=== PATIENT | female | born 1995 | race Caucasian/White ===

== ENCOUNTER 2020-08-19 10:58 | Emergency (ER) | payer OTHER ==
[~2020-08-19] VITALS: Ht 154.9 cm; Wt 74.5 kg
[2020-08-19] MEDS ORDERED: ADDE20CA3 PO (11:08)
[2020-08-19] MEDS ORDERED: CLON0.5T17 PO (11:08)
[2020-08-19] MEDS ORDERED: LAMI1TAB8 PO (11:08)
[2020-08-19] MEDS ORDERED: BACL1TAB9 PO (11:08)
[2020-08-19] MEDS ORDERED: BOOSTRIX/ADACEL VACCINE (DIPHTH/PERTUSS/ACELL/TETANUS) 0.5ML SYR IM ONE (11:45)
[2020-08-19] MEDS ORDERED: ACETAMINOPHEN 325 MG TAB PO ONE (11:45)
[2020-08-19 12:12] LABS: BASO % 0.4 % (0.0-1.0); EOS # 0.1 10^3/uL (0.0-0.5); EOS % 1.4 % (0.0-3.0); HEMATOCRIT 40.6 % (36.0-47.0); HEMOGLOBIN 13.5 g/dl (12.0-15.5); LYMPH # 2.2 10^3/uL (1.5-5.0); LYMPH % 30.6 % (24.0-44.0); MEAN CORPUSCULAR HEMOGLOBIN 32.5 pg (27.0-33.0); MEAN CORPUSCULAR HGB CONC 33.3 g/dl (32.0-36.5); MEAN CORPUSCULAR VOLUME 97.6 fl (80.0-96.0); MONO # 0.6 10^3/uL (0.0-0.8); MONO % 7.9 % (2.0-8.0); NEUTROPHILS # 4.2 10^3/uL (1.5-8.5); NEUTROPHILS % 59.1 % (36.0-66.0); PLATELET COUNT, AUTOMATED 242 10^3/uL (150-450); RED BLOOD COUNT 4.16 10^6/uL (4.00-5.40); WHITE BLOOD COUNT 7.2 10^3/uL (4.0-10.0)
[2020-08-19 12:45] LABS: ALBUMIN 4.2 GM/DL (3.2-5.2); ALT/SGPT 31 U/L (12-78); BILIRUBIN,DIRECT 0.1 MG/DL (0.0-0.2); BILIRUBIN,TOTAL 0.3 MG/DL (0.2-1.0); LIPASE 274 U/L (73-393); TOTAL PROTEIN 7.2 GM/DL (6.4-8.2)
[2020-08-19] MEDS ORDERED: ISOVUE-370 76% 100ML VIAL As Ordered ONE (12:48)
[2020-08-19 13:07] LABS: CK-MB VALUE MASS 1.8 NG/ML (<3.6); CPK CREATINE PHOSPHOKINASE 236 U/L (26-192); MB/CK RELATIVE INDEX 0.76 (< OR =4); TROPONIN I < 0.02 NG/ML (< 0.10)
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
[2020-08-19 14:13] VITALS: BP 119/74
== END 2020-08-19 14:40 | disposition home or self-care (01) ==
LOC: M ED 10:58
DX: S16.1XXA Strain of muscle, fascia and tendon at neck level, initial encounter (principal); S20.219A Contusion of unspecified front wall of thorax, initial encounter; S40.012A Contusion of left shoulder, initial encounter; S60.511A Abrasion of right hand, initial encounter; V49.40XA Driver injured in collision with unspecified motor vehicles in traffic accident, initial encounter; Y92.9 Unspecified place or not applicable; Y93.9 Activity, unspecified; Y99.9 Unspecified external cause status; M54.2 Cervicalgia; Z88.6 Allergy status to analgesic agent
CPT/HCPCS: 36415; 70450; 71260; 72125; 73030; 74177; 80047; 80076; 82550; 82553; 83690; 84484; 84702; 85025; 90471; 90715; 99284; Q9967

== ENCOUNTER → 2020-09-15 | Outpatient (REF) | payer OTHER ==
[~2020-09-15] MED LIST: ADDE20CA3 PO; BACL1TAB9 PO; CLON0.5T17 PO; LAMI1TAB8 PO
[2020-09-20 17:07] LABS: AMPHETAMINE, URINE GC/MS >5000 ng/mL (Cutoff=500); CREATININE, URINE 90.1 mg/dL (20.0-300.0); METHAMPHETAMINE, URINE Negative (Cutoff=500)
== END ==
LOC: M LAB REF 16:45
PROVIDERS: ATTEND Pediatrics
DX: F13.20 Sedative, hypnotic or anxiolytic dependence, uncomplicated (principal)

== ENCOUNTER → 2020-09-29 | Outpatient (REF) | payer OTHER ==
[2020-09-29 18:10] LABS: ALBUMIN 4.4 GM/DL (3.2-5.2); BLOOD UREA NITROGEN 9 MG/DL (7-18); CALCIUM LEVEL 9.6 MG/DL (8.5-10.1); CARBON DIOXIDE LEVEL 29 MEQ/L (21-32); CHLORIDE LEVEL 110 MEQ/L (98-107); CREATININE FOR GFR 0.76 MG/DL (0.55-1.30); GLOMERULAR FILTRATION RATE > 60.0 (>60); GLUCOSE, FASTING 84 MG/DL (70-100); LITHIUM LEVEL 0.72 MEQ/L (0.60-1.20); PHOSPHORUS LEVEL 3.9 MG/DL (2.5-4.9); POTASSIUM SERUM 4.3 MEQ/L (3.5-5.1); SODIUM LEVEL 141 MEQ/L (136-145)
== END ==
LOC: M LAB REF 16:21
PROVIDERS: ATTEND Pediatrics
DX: F13.20 Sedative, hypnotic or anxiolytic dependence, uncomplicated (principal); F31.81 Bipolar II disorder

== ENCOUNTER → 2021-04-27 | Outpatient (REF) | payer OTHER ==
[2021-04-27 18:09] LABS: HEMATOCRIT 38.7 % (36.0-47.0); HEMOGLOBIN 13.2 g/dl (12.0-15.5); MEAN CORPUSCULAR HEMOGLOBIN 32.6 pg (27.0-33.0); MEAN CORPUSCULAR HGB CONC 34.1 g/dl (32.0-36.5); MEAN CORPUSCULAR VOLUME 95.6 fl (80.0-96.0); PLATELET COUNT, AUTOMATED 269 10^3/uL (150-450); RED BLOOD COUNT 4.05 10^6/uL (4.00-5.40); WHITE BLOOD COUNT 7.9 10^3/uL (4.0-10.0)
[2021-04-27 18:56] LABS: HCG, SERUM QUANTITATIVE 8907 MIU/ML
[2021-04-27 19:05] LABS: HEPATITIS B SURFACE ANTIGEN NEGATIVE (NEGATIVE)
[2021-04-27 19:33] LABS: HEPATITIS C VIRUS ABY INDEX < 0.0 INDEX (<0.8)
[2021-04-27 19:34] LABS: HIV 1&2 SCREEN CENTAUR NEGATIVE (NEGATIVE)
== END ==
LOC: M LAB REF 16:55
PROVIDERS: ATTEND Advanced Practice Midwife
DX: Z32.01 Encounter for pregnancy test, result positive (principal); O36.80X0 Pregnancy with inconclusive fetal viability, not applicable or unspecified

== ENCOUNTER → 2021-09-19 | Outpatient (CLI) | payer OTHER ==
[2021-09-19 13:57] LABS: BASO # 0.1 10^3/uL (0.0-0.2); BASO % 0.5 % (0.0-1.0); EOS # 0.1 10^3/uL (0.0-0.5); EOS % 0.7 % (0.0-3.0); HEMATOCRIT 32.4 % (36.0-47.0); HEMOGLOBIN 10.9 g/dl (12.0-15.5); LYMPH # 1.9 10^3/uL (1.5-5.0); MEAN CORPUSCULAR HEMOGLOBIN 32.1 pg (27.0-33.0); MEAN CORPUSCULAR HGB CONC 33.6 g/dl (32.0-36.5); MEAN CORPUSCULAR VOLUME 95.3 fl (80.0-96.0); MONO # 0.5 10^3/uL (0.0-0.8); MONO % 4.2 % (2.0-8.0); NEUTROPHILS # 9.8 10^3/uL (1.5-8.5); NEUTROPHILS % 77.7 % (36.0-66.0); PLATELET COUNT, AUTOMATED 204 10^3/uL (150-450); WHITE BLOOD COUNT 12.6 10^3/uL (4.0-10.0)
== END ==
LOC: M LAB 11:50
PROVIDERS: ATTEND Advanced Practice Midwife
DX: Z34.02 Encounter for supervision of normal first pregnancy, second trimester (principal)

== ENCOUNTER → 2021-09-22 | Outpatient (CLI) | payer OTHER | LOC: M LAB 08:23 | PROVIDERS: ATTEND Advanced Practice Midwife | DX: O99.810 Abnormal glucose complicating pregnancy (principal) ==

== ENCOUNTER → 2021-11-24 | Outpatient (REF) | payer OTHER ==
[~2021-11-24] MED LIST changes: +ADDE30CA3 PO; +BACL10TA2 PO; +PRENTAB9 PO; +TRAZ1TAB10 PO
== END ==
LOC: M LAB REF 12:11
PROVIDERS: ATTEND Obstetrics & Gynecology
DX: Z34.03 Encounter for supervision of normal first pregnancy, third trimester (principal)

== ENCOUNTER 2021-12-17 08:37 | Outpatient (CLI) | payer OTHER ==
[~2021-12-17] VITALS: Ht 154.9 cm; Wt 91.7 kg
[2021-12-17] MEDS ORDERED: THERTAB52 PO (08:59)
[2021-12-17] MEDS ORDERED: IRON325T2 PO (08:59)
[2021-12-17 09:04] VITALS: BP 125/72
[2021-12-17] MEDS ORDERED: HOME MED LIST COMPLETE! XX SCH (09:10)
[2021-12-17 09:33] VITALS: BP 132/73
== END 2021-12-17 09:46 | disposition home or self-care (01) ==
LOC: M LDO 08:37
PROVIDERS: ATTEND Specialist
DX: O36.8330 Maternal care for abnormalities of the fetal heart rate or rhythm, third trimester, not applicable or unspecified (principal); Z71.1 Person with feared health complaint in whom no diagnosis is made; Z3A.38 38 weeks gestation of pregnancy
CPT/HCPCS: 59025; G0463

== ENCOUNTER 2021-12-28 07:28 | Inpatient (IN) | payer OTHER ==
[~2021-12-28] VITALS: Ht 154.9 cm; Wt 95.3 kg
[2021-12-28] VITALS (13 sets, daily range): BP systolic 107–147; BP diastolic 66–85
[~2021-12-28 07:28] MED LIST changes: +IRON325T2 PO; +THERTAB52 PO
[2021-12-28] MEDS ORDERED: CETI10CA2 PO (07:55)
[2021-12-28] MEDS ORDERED: OMEP40CA4 PO (07:56)
[2021-12-28] MEDS ORDERED: HOME MED LIST COMPLETE! XX SCH (08:00)
[2021-12-28] MEDS ORDERED: LIDOCAINE 1% MDV 20ML VIAL INFIL PRN (08:50)
[2021-12-28] MEDS ORDERED: CARBOPROST TROMETHAMINE 250 MCG/ML AMP IM PRN (08:50)
[2021-12-28] MEDS ORDERED: OXYTOCIN INJ 10 UNITS/ML VIAL (J2590) IM PRN (08:50)
[2021-12-28] MEDS ORDERED: TRANEXAMIC ACID INJection 1,000 MG in NS 100 ML IV PRN (08:50)
[2021-12-28] MEDS ORDERED: PENICILLIN G POTASSIUM IV 5 MU in D5W MINI-BAG PLUS 100 ML IV STA (08:50)
[2021-12-28] MEDS ORDERED: OXYTOCIN DRIP 30 UNITS in IV 1 EA IV PRN (08:50)
[2021-12-28 09:08] LABS: HEMOGLOBIN 9.8 g/dl (12.0-15.5); MEAN CORPUSCULAR HEMOGLOBIN 32.1 pg (27.0-33.0); MEAN CORPUSCULAR HGB CONC 33.8 g/dl (32.0-36.5); MEAN CORPUSCULAR VOLUME 95.1 fl (80.0-96.0); PLATELET COUNT, AUTOMATED 145 10^3/uL (150-450); RED BLOOD COUNT 3.05 10^6/uL (4.00-5.40); WHITE BLOOD COUNT 9.6 10^3/uL (4.0-10.0)
[2021-12-28 09:31] LABS: ALT/SGPT 18 U/L (12-78); BILIRUBIN,TOTAL 0.3 MG/DL (0.2-1.0); CREATININE FOR GFR 0.54 MG/DL (0.55-1.30); GLOMERULAR FILTRATION RATE > 60.0 (>60); LDH LACTATE DEHYDROGENASE 180 U/L (84-246); URIC ACID 3.7 MG/DL (2.6-6.0)
[2021-12-28] MEDS: miSOPROStol 50MCG 1/2 TABLET PO SCH ×3 (09:34→17:53)
[2021-12-28 09:38] LABS: CREATININE,RANDOM URINE 25.3 MG/DL; TOTAL PROTEIN,RANDOM URINE 9.9 MG/DL (0.0-12.0)
[2021-12-28] MEDS ORDERED: PENICILLIN G POTASSIUM IV 2.5 MU in IV 1 EA IV SCH (12:50)
[2021-12-29] VITALS (35 sets, daily range): BP systolic 113–162; BP diastolic 58–91
[2021-12-29] MEDS ORDERED: BUTORPHANOL 2 MG/ML INJ (J0595) IV ONE
[2021-12-29] MEDS ORDERED: PROMETHAZINE 25MG/ML 1ML VIAL IV ONE
[2021-12-29] MEDS: miSOPROStol 50MCG 1/2 TABLET PO SCH
[2021-12-29] MEDS ORDERED: OXYTOCIN DRIP 30 UNITS in IV 1 EA IV SCH ×2 (04:05→13:25)
[2021-12-29] MEDS: LR 1,000 ML IV SCH ×5 (04:20→20:55)
[2021-12-29 04:51] LABS: HEMATOCRIT 30.2 % (36.0-47.0); MEAN CORPUSCULAR HEMOGLOBIN 31.1 pg (27.0-33.0); MEAN CORPUSCULAR HGB CONC 33.1 g/dl (32.0-36.5); MEAN CORPUSCULAR VOLUME 93.8 fl (80.0-96.0); PLATELET COUNT, AUTOMATED 141 10^3/uL (150-450); RED BLOOD COUNT 3.22 10^6/uL (4.00-5.40); WHITE BLOOD COUNT 12.5 10^3/uL (4.0-10.0)
[2021-12-29] MEDS ORDERED: PENICILLIN G POTASSIUM IV 5 MU in D5W MINI-BAG PLUS 100 ML IV STA (05:26)
[2021-12-29] MEDS ORDERED: FENTANYL 2MCG/ML ROPIVACAINE 0.2% IN 0.9% NACL 100ML IVBAG As Ordered ONE (09:00)
[2021-12-29] MEDS: AMPHETAMINE/DEXTROAMPHETAMINE 5 MG *ER* CAPSULE (ADDERALL XR) PO SCH (09:00)
[2021-12-29] MEDS: PRENATAL VITAMINS CHEWABLE TABLET PO SCH (09:00)
[2021-12-29] MEDS ORDERED: PENICILLIN G POTASSIUM IV 2.5 MU in IV 1 EA IV SCH (09:00)
[2021-12-29] MEDS: DOCUSATE SODIUM 100MG CAPSULE PO SCH ×2 (09:00→20:43)
[2021-12-29] MEDS ORDERED: EPIDURAL/PCA KEYS XX PRN (09:35)
[2021-12-29] MEDS ORDERED: NALOXONE INJ 0.4MG/1ML VIAL (J2310 PER 1MG) IV PRN ×3 (09:35→14:40)
[2021-12-29] MEDS ORDERED: LR 500 ML IV PRN (09:35)
[2021-12-29] MEDS ORDERED: diphenhydrAMINE 50MG/ML VIAL (J1200) IV PRN (09:35)
[2021-12-29] MEDS ORDERED: FENTANYL/ROPIVACAINE/NACL BAG 100 ML EPIDURAL SCH ×2 (09:35)
[2021-12-29] MEDS ORDERED: ONDANSETRON 4MG 2ML VIAL IV PRN ×3 (09:35→14:40)
[2021-12-29] MEDS ORDERED: ePHEDrine SULFATE 25 MG/5 ML(5MG/ML) SYRINGE IVP PRN (09:35)
[2021-12-29] MEDS ORDERED: BICITRA 30ML SOLN UDC PO ONE (12:55)
[2021-12-29] MEDS ORDERED: AZITHROMYCIN INJ 500 MG, VIAL MATE ADAPTER 1 EACH in NS 250 ML IV ONE (12:55)
[2021-12-29] MEDS ORDERED: ceFAZolin SOD 2 GM in IV 1 EA IV ONE (12:55)
[2021-12-29] MEDS ORDERED: LIDOCAINE 2% W/EPINEPHRINE 20ML VIAL **PRES FREE As Ordered ONE (13:07)
[2021-12-29] MEDS ORDERED: OXYTOCIN INJ 10 UNITS/ML VIAL (J2590) As Ordered ONE ×2 (13:08→14:15)
[2021-12-29] MEDS ORDERED: LR 1,000 ML IV SCH (13:25)
[2021-12-29] MEDS ORDERED: SIMETHICONE 80MG CHEW TAB PO PRN (13:25)
[2021-12-29] MEDS ORDERED: KETOROLAC 30 MG/ML 1ML VIAL IV SCH (13:25)
[2021-12-29] MEDS ORDERED: RHOGAM 300 MCG (1500 IU) INJ (J2790) IM SCH (13:25)
[2021-12-29] MEDS ORDERED: PERCOCET 5MG/325MG TAB PO PRN (13:25)
[2021-12-29] MEDS ORDERED: MOM 30ML SUSPENSION UDC PO PRN (13:25)
[2021-12-29] MEDS ORDERED: METOCLOPRAMIDE INJ 10MG/2ML VIAL (J2765 PER 1) As Ordered ONE (13:26)
[2021-12-29] MEDS ORDERED: dexameTHASONE 4 MG/ML 1ML VIAL (J1100 PER 1MG) As Ordered ONE (13:37)
[2021-12-29] MEDS ORDERED: ONDANSETRON 4MG 2ML VIAL As Ordered ONE (13:37)
[2021-12-29] MEDS ORDERED: PHENYLephrine 500MCG 5ML (100MCG/ML) SYRINGE As Ordered ONE (13:41)
[2021-12-29] MEDS ORDERED: MORPHINE PRES-FREE INJ 10 MG/10 ML VIAL As Ordered ONE (13:51)
[2021-12-29] MEDS: SLF 3 ML SYR IV SCH ×2 (14:00→22:00)
[2021-12-29 14:03] LABS: CORD GAS ABE A -5.2; CORD GAS HCO3 A 24.6 MEQ/L; CORD GAS O2 SAT A 17.8 %; CORD GAS PCO2 A 67.7 mmHg; CORD GAS PH A 7.178 UNITS; CORD GAS PO2 A 13.6 mmHg; CORD GAS SBC A 18.4 MEQ/L; CORD GAS TCO2 A 26.7 MEQ/L
[2021-12-29 14:07] LABS: CORD GAS HCO3 V 21.9 MEQ/L; CORD GAS O2 SAT V 51.1 %; CORD GAS PCO2 V 52.3 mmHg; CORD GAS PH V 7.24 UNITS; CORD GAS PO2 V 26.1 mmHg; CORD GAS SBC V 18.6 MEQ/L; CORD GAS TCO2 V 23.5 MEQ/L
[2021-12-29] MEDS ORDERED: KETOROLAC 60MG 2ML VIAL As Ordered ONE (14:11)
[2021-12-29] MEDS ORDERED: OXYTOCIN 30 UNITS IN 0.9% NaCl 500ML IV BAG (J2590) As Ordered ONE (14:39)
[2021-12-29] MEDS ORDERED: oxyCODONE 5MG TAB PO PRN (14:40)
[2021-12-29] MEDS ORDERED: METOCLOPRAMIDE INJ 10MG/2ML VIAL (J2765 PER 1) IV PRN (14:40)
[2021-12-29] MEDS ORDERED: **NOTE PATIENT COMMENT** MISC XX SCH (14:40)
[2021-12-29] MEDS ORDERED: HYDROMORPHONE HCL 0.5 MG/ 0.5 ML SYRINGE (J1170 PER 1) IV PRN (14:40)
[2021-12-29] MEDS ORDERED: fentaNYL 100 MCG/2 ML INJECTION IV PRN (14:40)
[2021-12-29] MEDS ORDERED: MEPERIDINE INJ 25 MG/ML VIAL (J2175) IV PRN (14:40)
[2021-12-29] MEDS: PERCOCET 5MG/325MG TAB PO PRN (22:27)
[2021-12-30 03:15] VITALS: BP 122/71
[2021-12-30] MEDS: LR 1,000 ML IV SCH ×3 (04:05→12:05)
[2021-12-30] MEDS: PERCOCET 5MG/325MG TAB PO PRN ×4 (05:16→23:45)
[2021-12-30] MEDS: SLF 3 ML SYR IV SCH (05:18)
[2021-12-30 06:00] VITALS: BP 111/73
[2021-12-30 07:45] LABS: HEMATOCRIT 26.7 % (36.0-47.0); HEMOGLOBIN 8.9 g/dl (12.0-15.5); MEAN CORPUSCULAR HEMOGLOBIN 31.7 pg (27.0-33.0); MEAN CORPUSCULAR HGB CONC 33.3 g/dl (32.0-36.5); PLATELET COUNT, AUTOMATED 165 10^3/uL (150-450); RED BLOOD COUNT 2.81 10^6/uL (4.00-5.40); WHITE BLOOD COUNT 16.5 10^3/uL (4.0-10.0)
[2021-12-30] MEDS: AMPHETAMINE/DEXTROAMPHETAMINE 5 MG *ER* CAPSULE (ADDERALL XR) PO SCH (09:00)
[2021-12-30] MEDS: DOCUSATE SODIUM 100MG CAPSULE PO SCH ×2 (09:42→20:32)
[2021-12-30] MEDS: PRENATAL VITAMINS CHEWABLE TABLET PO SCH (09:43)
[2021-12-30 10:00] VITALS: BP 116/70
[2021-12-30] MEDS ORDERED: COLA100C5 PO (13:09)
[2021-12-30] MEDS ORDERED: PERCOCET PO (13:09)
[2021-12-30] MEDS ORDERED: IBUPROFEN 800 MG TAB PO SCH (15:25)
[2021-12-30 17:59] VITALS: BP 134/84
[2021-12-30 22:00] VITALS: BP 125/69
[2021-12-30] MEDS ORDERED: ACETAMINOPHEN 500 MG TAB PO ONE (22:20)
[2021-12-31 02:00] VITALS: BP 117/60
[2021-12-31 05:44] VITALS: BP 130/79
[2021-12-31] MEDS: PERCOCET 5MG/325MG TAB PO PRN ×2 (05:51→12:26)
[2021-12-31] MEDS: AMPHETAMINE/DEXTROAMPHETAMINE 5 MG *ER* CAPSULE (ADDERALL XR) PO SCH (09:00)
[2021-12-31] MEDS ORDERED: MEASLES,MUMPS,RUBELLA VACCINE INJ (MMR-II) (90707) SC.IMMUN ONE (09:00)
[2021-12-31] MEDS: DOCUSATE SODIUM 100MG CAPSULE PO SCH (09:49)
[2021-12-31] MEDS: PRENATAL VITAMINS CHEWABLE TABLET PO SCH (09:49)
[2021-12-31 10:00] VITALS: BP 131/79
[2021-12-31] MEDS ORDERED: NAPR-849 PO (11:29)
[2021-12-31] MEDS ORDERED: NAPROXEN 250 MG TAB PO ONE (12:00)
[2021-12-31 14:00] VITALS: BP 128/70
== END 2021-12-31 16:04 | disposition home or self-care (01) | DRG 773 ==
LOC: M LDI 07:28 → M OBS 12-29 16:32
PROVIDERS: ADMIT Advanced Practice Midwife; ATTEND Obstetrics & Gynecology
PROC: 3E0P7GC Introduction of Other Therapeutic Substance into Female Reproductive, Via Natural or Artificial Opening (ICD-10-PCS; 2021-12-28)
PROC: 10D00Z1 Extraction of Products of Conception, Low, Open Approach (ICD-10-PCS; principal; 2021-12-29 13:14)
DX: O13.4 Gestational [pregnancy-induced] hypertension without significant proteinuria, complicating childbirth (principal); Z3A.40 40 weeks gestation of pregnancy; O99.824 Streptococcus B carrier state complicating childbirth; O99.344 Other mental disorders complicating childbirth; F90.9 Attention-deficit hyperactivity disorder, unspecified type; O76 Abnormality in fetal heart rate and rhythm complicating labor and delivery; Z37.0 Single live birth

== ENCOUNTER 2023-04-24 18:08 | Emergency (ER) | payer OTHER ==
[~2023-04-24] VITALS: Ht 154.9 cm; Wt 70.4 kg
[~2023-04-24 18:08] MED LIST changes: +CETI10CA2 PO; +COLA100C5 PO; +NAPR-849 PO; +OMEP40CA4 PO; +PERCOCET PO
[2023-04-24 18:09] VITALS: BP 133/95; TEMP 97.1; O2SAT 99
== END 2023-04-24 19:18 | disposition left against medical advice (07) ==
LOC: M ED 18:08
DX: Z53.21 Procedure and treatment not carried out due to patient leaving prior to being seen by health care provider (principal)

== ENCOUNTER → 2023-06-07 | Outpatient (CLI) | payer OTHER ==
[2023-06-07 13:25] LABS: BASO % 0.4 % (0.0-1.0); EOS % 0.8 % (0.0-3.0); HEMATOCRIT 40.3 % (36.0-47.0); HEMOGLOBIN 13.8 g/dl (12.0-15.5); LYMPH # 2.2 10^3/uL (1.5-5.0); LYMPH % 27.9 % (24.0-44.0); MEAN CORPUSCULAR HEMOGLOBIN 33.3 pg (27.0-33.0); MEAN CORPUSCULAR HGB CONC 34.2 g/dl (32.0-36.5); MEAN CORPUSCULAR VOLUME 97.1 fl (80.0-96.0); MONO # 0.5 10^3/uL (0.0-0.8); MONO % 5.7 % (2.0-8.0); NEUTROPHILS # 5.1 10^3/uL (1.5-8.5); NEUTROPHILS % 64.7 % (36.0-66.0); PLATELET COUNT, AUTOMATED 247 10^3/uL (150-450); RED BLOOD COUNT 4.15 10^6/uL (4.00-5.40); WHITE BLOOD COUNT 7.8 10^3/uL (4.0-10.0)
[2023-06-07 13:26] LABS: EOS # 0.1 10^3/uL (0.0-0.5)
[2023-06-07 13:59] LABS: IRON (FE) 73 UG/DL (50-170); PERCENT SATURATION 20.1 % (13.2-45.0); TOTAL IRON BINDING CAPACITY 364 UG/DL (250-425)
[2023-06-07 14:00] LABS: ALBUMIN 4.1 G/DL (3.2-5.2); ALKALINE PHOSPHATASE 50 U/L (46-116); ALT/SGPT 38 U/L (7.0-40); AST/SGOT 23 U/L (<34); BILIRUBIN,TOTAL 0.5 MG/DL (0.3-1.2); BLOOD UREA NITROGEN 13 MG/DL (9-23); CALCIUM LEVEL 9.6 MG/DL (8.5-10.1); CARBON DIOXIDE LEVEL 25 MMOL/L (20-31); CHLORIDE LEVEL 107 MMOL/L (98-107); CREATININE FOR GFR 0.78 MG/DL (0.55-1.30); GLOMERULAR FILTRATION RATE > 60.0 (>60); GLUCOSE, FASTING 100 MG/DL (60-100); HCG, SERUM QUANTITATIVE < 2.6 MIU/ML (<4.2); POTASSIUM SERUM 4.7 MMOL/L (3.5-5.1); SODIUM LEVEL 139 MMOL/L (136-145)
[2023-06-07 14:01] LABS: FREE T4 1.13 NG/DL (0.89-1.76)
[2023-06-07 14:02] LABS: FERRITIN 29.9 NG/ML (7.3-270.7); THYROID STIMULATING HORMONE 0.884 uIU/ML (0.55-4.78)
[2023-06-09 01:07] LABS: FACTOR V 115 % (70-150); FACTOR VIII AG (VON WILLEBRAN) 127 % (50-200)
== END ==
LOC: M PLALAB 11:43
PROVIDERS: ATTEND Nurse Practitioner Family
DX: N92.0 Excessive and frequent menstruation with regular cycle (principal); Z30.09 Encounter for other general counseling and advice on contraception